=== PATIENT | male | born 1990 | race Caucasian/White ===

== ENCOUNTER 2016-12-18 19:45 | Emergency (ER) | payer MEDICAID ==
--- NOTE | 2016-12-18 21:52 | ED Physician Chart ---
Chief Complaint/HPI - Patient Information Date Seen:: 12/18/16 Time Seen:: 21:30 Chief Complaint:: sore throat, cough, subjective fever History of Present Illness:: patient has had sore throat, cough productive of dark green sputum, subjective fever for three days. Patient has been using two inhalers and his breathing machine without improvement. Allergies:: Allergies Allergy/AdvReac Type Severity Reaction Status Date / Time No Known Allergies Allergy Verified 12/18/16 20:13 Vitals:: Vital Signs - 8 hr 12/18/16 20:13 Temp 98.8 F HR 109 RR 18 BP 138/81 O2 Sat % 97 Historian:: Patient Review:: Nurse's Note Reviewed, Transfer documents Reviewed Review of Systems - Review of Systems General/Constitutional: Fever Skin: No skin lesions Head: No headache Eyes: No loss of vision ENT: No earache, Sore throat Neck: No neck pain Cardio Vascular: No chest pain Pulmonary: Cough, Sputum GI: No nausea, No vomiting, No diarrhea G/U: No dysuria Musculoskeletal: No bone or joint pain, No back pain Endocrine: No polyuria, No polydipsia Psychiatric: No prior psych history, No depression, No anxiety Hematopoietic: No bruising Allergic/Immuno: No urticaria Neurological: No syncope, No focal symptoms Past Medical History - Past Medical History Past Medical History: Asthma/COPD Family History: Heart disease, Diabetes Melitus Social History: Non Smoker, No Alcohol Surgical History: None Psychiatricy History: None Medication: Reviewed Family Medical History - Family Member Mother History Unknown: Yes Ethnicity: Non- Living Status: Still Living Hx Family Cancer: No Hx Family Hypertension: Yes Hx Family Diabetes: Yes Physical Exam - Physical Examination General/Constitutional: Well-developed, well-nourished, Alert, No distress Head: Atraumatic Eyes: Lids, conjuctiva normal, PERRL Skin: Nl inspection, No rash, No skin lesions ENMT: External ears, nose nl, TM canals nl, Nasal exam nl, Lips, teeth, gums nl Other ENMT comments:: mild increased erythema of pharynx with slight mucousy exudate Neck: No nuchal rigidity Respiratory: Nl effort/Exclusion, Clear to Auscultation Other Respiratory comments:: slight prolongation of expirations Cardio Vascular: RRR GI: No tenderness/rebounding/guarding, No organomegaly : No CVA tenderness Extremities: Normal digits & nails Neuro/Psych: No focal deficits Misc: Normal back ED Septic Shock - . Is Septic Shock (SBP<90, OR Lactate>4 mmol\L) present?: No - <6hrs of presentation: Vital Signs: Vital Signs - 8 hr 12/18/16 20:13 Temp 98.8 F HR 109 RR 18 BP 138/81 O2 Sat % 97 Reassessment (Disposition) - Reassessment Reassessment Condition:: Unchanged - Diagnosis Diagnosis:: acute viral syndrome; pharyngitis; bronchitis - Aftercare/Follow up Instructions Medication Prescribed:: Promethazine with codeine elixir 4 oz Sig 10 ml QID; Z pack - Patient Disposition Discharge/Transfer:: Home Condition at Disposition:: Stable, Unchanged
== END 2016-12-18 22:05 | disposition home or self-care (01) ==
LOC: ER 19:45
DX: B34.9 Viral infection, unspecified (principal); J40 Bronchitis, not specified as acute or chronic; J02.9 Acute pharyngitis, unspecified
CPT/HCPCS: Z7502

== ENCOUNTER 2017-03-02 08:47 | Emergency (ER) | payer BC, MEDICAID ==
--- NOTE | 2017-03-02 10:06 | ED Physician Chart ---
Chief Complaint/HPI - Patient Information Date Seen:: 03/02/17 Time Seen:: 09:00 History of Present Illness:: THIS IS A 26 YO MALE WITH A DEEP COUGH AND CHEST CONGESTION THAT HE THINKS BECAUSE HIS HAS BEEN SICK WITH THE SAME SYMPTOMS OF FEVER AND CONGESTION. HE STATES THAT HE HAS A SORE THROAT. HE DENIES ALL OTHER ILLNESSES. HE DENIES SPUTUM PRODUCTION. HE DENIES ANY PREVIOUS BOUTS OF PNEUMONIA AND T.B. Allergies:: Allergies Allergy/AdvReac Type Severity Reaction Status Date / Time No Known Allergies Allergy Verified 03/02/17 09:03 Vitals:: Vital Signs - 8 hr 03/02/17 03/02/17 08:51 09:16 Temp 99.2 F 99.2 F HR 123 123 RR 16 16 BP 136/73 136/73 O2 Sat % 97 97 Historian:: Patient Review:: Nurse's Note Reviewed Review of Systems - Review of Systems General/Constitutional: Fever, No chills, No weight loss, No weakness, No diaphoresis, No edema, No loss of appetite Skin: No skin lesions, No rash, No bruising Head: No headache, No light-headedness Eyes: No loss of vision, No pain, No diplopia ENT: No earache, No nasal drainage, Sore throat, No tinnitus Neck: No neck pain, No swelling, No thyromegaly, No stiffness, No mass noted Cardio Vascular: No chest pain, No palpitations, No PND, No orthopnea, No edema Pulmonary: No SOB, Cough, No sputum, No wheezing, Other (CONGESTION) GI: No nausea, No vomiting, No diarrhea, No pain, No melena, No hematochezia, No constipation, No hematemesis G/U: No dysuria, No frequency, No hematuria Musculoskeletal: No bone or joint pain, No back pain, No muscle pain Endocrine: No polyuria, No polydipsia Psychiatric: No prior psych history, No depression, No anxiety, No suicidal ideation Hematopoietic: No bruising, No lymphadenopathy Allergic/Immuno: No urticaria, No angioedema Neurological: No syncope, No focal symptoms, No weakness, No paresthesia, No headache, No seizure, No dizziness, No confusion, No vertigo Past Medical History - Past Medical History Obtainable: Yes Past Medical History: No significant medical hx Family History: None Social History: Non Smoker, No Alcohol, No Drug Use Surgical History: None Psychiatricy History: None Medication: Reviewed Family Medical History - Family Member Mother History Unknown: Yes Ethnicity: Non- Living Status: Still Living Hx Family Cancer: No Hx Family Hypertension: Yes Hx Family Diabetes: Yes Physical Exam - Physical Examination General/Constitutional: Awake, Well-developed, well-nourished, Alert, No distress, GCS 15, Non-toxic appearing, Ambulatory Head: Atraumatic Eyes: Lids, conjuctiva normal, PERRL, EOMI Skin: Nl inspection, No rash, No skin lesions, No ecchymosis, Well hydrated, No lymphadenopathy ENMT: External ears, nose nl, Nasal exam nl, Lips, teeth, gums nl, Oropharynx nl (POSTERIOR PHARYNX IS RED AND SWOLLEN) Neck: Nontender, Full ROM w/o pain, No JVD, No nuchal rigidity, No bruit, No mass, No stridor Respiratory: Nl effort/Exclusion, Clear to Auscultation, No Wheeze/Rhonchi/ Rales (BILATERAL RHONCHI) Cardio Vascular: RRR, No murmur, gallop, rubs, NL S1 S2 GI: No tenderness/rebounding/guarding, No organomegaly, No hernia, Normal BS's, Nondistended, No mass/bruits, No McBurney tenderness : No CVA tenderness Extremities: No tenderness or effusion, Full ROM, normal strength in all extremities, No edema, Normal digits & nails Neuro/Psych: Alert/oriented, DTR's symmetric, Normal sensory exam, Normal motor strength, Judgement/insight normal, Mood normal, Normal gait, No focal deficits Misc: normal gait, Normal back, No paraspinal tenderness ED Septic Shock - . Is Septic Shock (SBP<90, OR Lactate>4 mmol\L) present?: No - <6hrs of presentation: Vital Signs: Vital Signs - 8 hr 03/02/17 03/02/17 08:51 09:16 Temp 99.2 F 99.2 F HR 123 123 RR 16 16 BP 136/73 136/73 O2 Sat % 97 97 Reassessment (Disposition) - Reassessment Reassessment Condition:: Unchanged - Diagnosis Diagnosis:: ACUTE BRONCHITIS PHARYNGITIS - Aftercare/Follow up Instructions Aftercare/Follow-Up Instructions:: Counseled pt regarding lab results/diagnosis & need follow up, Refer to Discharge Instructions, Counseled pt & family regarding lab results/diagnosis & need follow up - Patient Disposition Discharge/Transfer:: Home Condition at Disposition:: Unchanged ED Discharge Plan - Patient Disposition Admit/Discharge/Transfer: PT DISCHARGED HOME Condition at Disposition: Unchanged Prescriptions: Azithromycin [Zithromax Tri-Wilmer] 500 mg PO DAILY #0 tablet Prednisone 10 mg PO BID #0 tab.[id number].[email or web address] Instructions: Bronchitis, [id number] Accepting Physician: , Primary [Other]
== END 2017-03-02 09:15 | disposition home or self-care (01) ==
LOC: ER 08:47
DX: J20.9 Acute bronchitis, unspecified (principal); J02.9 Acute pharyngitis, unspecified
CPT/HCPCS: Z7502

== ENCOUNTER 2017-03-20 13:24 | Emergency (ER) | payer BC, MEDICAID ==
[2017-03-20 13:50] VITALS: BP 128/66
--- NOTE | 2017-03-20 13:52 | ED Physician Chart ---
Chief Complaint/HPI - Patient Information Date Seen:: 03/20/17 Time Seen:: 13:40 Chief Complaint:: LEFT CHEST PAIN History of Present Illness:: THIS IS A 26 YO MALE WITH THE SIXTH VISIT TO THIS ER WITH UPPER RESPIRATORY SYMPTOMS AND THIS MORNING HE STARTED HAVING PAIN ON BREATHING ON HIS LEFT SIDE. HE DENIES FEVER, AND SORE THROAT TODAY. 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 HE DENIES ANY PREVIOUS EPISODES OF PAIN ON BREATHING OR PNEUMONIA. HE DENIES EXPOSURE TO ANY SMOKE PRODUCTS. Allergies:: Allergies Allergy/AdvReac Type Severity Reaction Status Date / Time No Known Allergies Allergy Verified 03/02/17 09:03 Vitals:: Vital Signs - 8 hr 03/20/17 03/20/17 13:33 13:34 Temp 98.7 F HR 86 RR 16 BP 128/66 128/66 Historian:: Patient Review:: Nurse's Note Reviewed Review of Systems - Review of Systems General/Constitutional: No fever, No chills, No weight loss, No weakness, No diaphoresis, No edema, No loss of appetite Skin: No skin lesions, No rash, No bruising Head: No headache, No light-headedness Eyes: No loss of vision, No pain, No diplopia ENT: No earache, No nasal drainage, No sore throat, No tinnitus Neck: No neck pain, No swelling, No thyromegaly, No stiffness, No mass noted Cardio Vascular: No chest pain, No palpitations, No PND, No orthopnea, No edema Pulmonary: No SOB, No cough, No sputum, No wheezing, Other (PAIN OF BREATHING DEEPLY ON THE LEFT SIDE.) GI: No nausea, No vomiting, No diarrhea, No pain, No melena, No hematochezia, No constipation, No hematemesis G/U: No dysuria, No frequency, No hematuria Musculoskeletal: No bone or joint pain, No back pain, No muscle pain Endocrine: No polyuria, No polydipsia Psychiatric: No prior psych history, No depression, No anxiety, No suicidal ideation Hematopoietic: No bruising, No lymphadenopathy Allergic/Immuno: No urticaria, No angioedema Neurological: No syncope, No focal symptoms, No weakness, No paresthesia, No headache, No seizure, No dizziness, No confusion, No vertigo Past Medical History - Past Medical History Past Medical History: Dyslipidemia Family History: None Social History: Non Smoker, No Alcohol, No Drug Use, , Employed Surgical History: None Psychiatricy History: None Medication: Reviewed Family Medical History - Family Member Mother History Unknown: Yes Ethnicity: Living Status: Still Living Hx Family Cancer: No Hx Family Coronary Artery Disease: No Hx Family Congestive Heart Failure: No Hx Family Hypertension: Yes Hx Family Stroke: No Hx Family Diabetes: No Hx Family Dementia: No Hx Family COPD: No Physical Exam - Physical Examination General/Constitutional: Awake, Well-developed, well-nourished, Alert, No distress, GCS 15, Non-toxic appearing, Ambulatory Head: Atraumatic Eyes: Lids, conjuctiva normal, PERRL, EOMI Skin: Nl inspection, No rash, No skin lesions, No ecchymosis, Well hydrated, No lymphadenopathy ENMT: External ears, nose nl, Nasal exam nl, Lips, teeth, gums nl Neck: Nontender, Full ROM w/o pain, No JVD, No nuchal rigidity, No bruit, No mass, No stridor Other Respiratory comments:: THERE RHONCHI HEARD ON BOTH SIDES WITH PAINFUL INSPIRATION ON THE LEFT MIDDLE LOBE AREA. Cardio Vascular: RRR, No murmur, gallop, rubs, NL S1 S2 GI: No tenderness/rebounding/guarding, No organomegaly, No hernia, Normal BS's, Nondistended, No mass/bruits, No McBurney tenderness : No CVA tenderness Extremities: No tenderness or effusion, Full ROM, normal strength in all extremities, No edema, Normal digits & nails Neuro/Psych: Alert/oriented, DTR's symmetric, Normal sensory exam, Normal motor strength, Judgement/insight normal, Mood normal, Normal gait, No focal deficits Misc: normal gait, Normal back, No paraspinal tenderness ED Septic Shock - . Is Septic Shock (SBP<90, OR Lactate>4 mmol\L) present?: No - <6hrs of presentation: Vital Signs: Vital Signs - 8 hr 03/20/17 03/20/17 13:33 13:34 Temp 98.7 F HR 86 RR 16 BP 128/66 128/66 Reassessment (Disposition) - Reassessment Reassessment Condition:: Improved - Aftercare/Follow up Instructions Aftercare/Follow-Up Instructions:: Counseled pt regarding lab results/diagnosis & need follow up, Refer to Discharge Instructions, Counseled pt & family regarding lab results/diagnosis & need follow up
[2017-03-20 14:28] LABS: % BASOPHILS 0.4 % (0.0-2.0); % EOSINOPHILS 0.5 % (0.0-5.0); % LYMPHOCYTES 25.1 % (20.0-50.0); % MONOCYTES 8.7 % (2.0-10.0); % NEUTROPHILS 65.3 % (40.0-80.0); HEMATOCRIT 43.8 % (39.0-49.0); HEMOGLOBIN 14.9 gm/dL (13.2-17.3); MEAN CELL VOLUME 88.6 fl (80-99); MEAN CORPUSCULAR HEMOGLOBIN 30.2 pg (26.0-30.0); MEAN CORPUSCULAR HGB CONC 34.1 pg (28.0-36.0); MEAN PLATELET VOLUME 9.7 fl; NEUTROPHILE ABSOLUTE 4.5 Th/cmm (1.8-8.0); PLATELET COUNT 214 Th/cmm (150-400); RED BLOOD COUNT 4.94 Mil/cmm (4.30-5.70); RED CELL DISTRIBUTION WIDTH 12.6 % (11.5-20.0); WHITE BLOOD COUNT 6.8 Th/cmm (4.8-10.8)
[2017-03-20 14:37] LABS: INR 0.96 (0.5-1.4)
[2017-03-20 14:46] LABS: ALB/GLOB RATIO 1.8 (1.0-1.8); ALKALINE PHOSPHATASE 62 U/L (34-104); ANION GAP 8.3 (7.0-16.0); BILIRUBIN,TOTAL 0.5 mg/dL (0.3-1.0); BUN - UREA NITROGEN 15 mg/dL (7-25); BUN/CREATININE RATIO 18.8; CALCIUM SERUM 9.7 mg/dL (8.6-10.3); CARBON DIOXIDE 24.6 mEq/L (21.0-31.0); CHLORIDE 107 mEq/L (98-107); CREATININE - SERUM 0.8 mg/dL (0.7-1.3); GLUCOSE 107 mg/dL (70-105); POTASSIUM SERUM 3.9 mEq/L (3.5-5.1); SGOT 22 U/L (13-39); SGPT/ALT 33 U/L (7-52); SODIUM SERUM 136 mEq/L (136-145)
--- NOTE | 2017-03-20 15:28 | Diagnostic Imaging Report ---
CT scan of the chest without intravenous contrast HISTORY: Pain Total DLP equals 257 CTDI equals 6.0 Axial sections were obtained from a level above the clavicles down to level below the diaphragm. There is a normal heart size. Evaluation of the vascular structures is limited due to the absence of intravenous contrast. Normal-sized lymph nodes are seen within the mediastinum. No abnormal focal pulmonary parenchymal processes are seen. No abnormal masses. No pleural fluid is seen. No definite acute bony abnormalities. IMPRESSION: No acute abnormalities
== END 2017-03-20 15:45 | disposition home or self-care (01) ==
LOC: ER 13:24
DX: R07.89 Other chest pain (principal); E78.5 Hyperlipidemia, unspecified
CPT/HCPCS: 36415-UA; 71250-TC; 80053-TC; 84443-TC; 84484-TC; 85025-TC; 85610-TC; 86592-TC

== ENCOUNTER 2017-04-30 15:06 | Emergency (ER) | payer BC, MEDICAID ==
--- NOTE | 2017-04-30 15:54 | ED Physician Chart ---
Chief Complaint/HPI - Patient Information Date Seen:: 04/30/17 Time Seen:: 15:40 Chief Complaint:: right-sided sore throat History of Present Illness:: Patient has had right-sided sore throat since yesterday. His temperature at home was 101.4. Patient has a mild cough. Allergies:: Allergies Allergy/AdvReac Type Severity Reaction Status Date / Time No Known Allergies Allergy Verified 03/02/17 09:03 Vitals:: Vital Signs - 8 hr 04/30/17 04/30/17 15:26 15:35 Temp 98.1 F 98.1 F HR 87 87 RR 16 16 BP 124/73 124/73 O2 Sat % 98 98 Historian:: Patient Review:: Nurse's Note Reviewed Review of Systems - Review of Systems General/Constitutional: Fever Skin: No skin lesions Head: No headache Eyes: No loss of vision ENT: No earache, Sore throat, No tinnitus Neck: No neck pain, No swelling, No thyromegaly, No stiffness Cardio Vascular: No chest pain, Palpitations Pulmonary: No SOB GI: No nausea, No vomiting Musculoskeletal: No bone or joint pain, No back pain, No muscle pain Endocrine: No polyuria, No polydipsia Psychiatric: No prior psych history Hematopoietic: No bruising, No lymphadenopathy Neurological: No syncope, No focal symptoms Past Medical History - Past Medical History Past Medical History: Dyslipidemia, Other (patient has frequent sore throats; he has had 5-6 sore throats this year; hyperlipidemia) Family History: Heart disease, Diabetes Melitus, HTN Social History: Non Smoker, No Alcohol Surgical History: None Psychiatricy History: None Medication: Reviewed Family Medical History - Family Member Mother History Unknown: Yes Ethnicity: Living Status: Still Living Hx Family Cancer: No Hx Family Coronary Artery Disease: Yes Hx Family Congestive Heart Failure: No Hx Family Hypertension: Yes Hx Family Stroke: No Hx Family Diabetes: Yes Hx Family Dementia: No Hx Family COPD: No Physical Exam - Physical Examination General/Constitutional: Well-developed, well-nourished, Alert, No distress Head: Atraumatic Eyes: Lids, conjuctiva normal, PERRL Skin: Nl inspection, No rash, No skin lesions, No ecchymosis, Well hydrated, No lymphadenopathy ENMT: External ears, nose nl, TM canals nl, Nasal exam nl, Lips, teeth, gums nl , Oropharynx nl Other ENMT comments:: The right tonsil is slightly swollen and slightly more erythematous than the left; there is 1 mm of exudate on the right tonsil Neck: No nuchal rigidity Respiratory: Nl effort/Exclusion, Clear to Auscultation, No Wheeze/Rhonchi/Rales Cardio Vascular: RRR, No murmur, gallop, rubs GI: No tenderness/rebounding/guarding, No organomegaly, No hernia, Normal BS's, Nondistended, No mass/bruits : No CVA tenderness Extremities: Normal digits & nails Neuro/Psych: Alert/oriented, No focal deficits Misc: Normal back, No paraspinal tenderness ED Septic Shock - . Is Septic Shock (SBP<90, OR Lactate>4 mmol\L) present?: No - <6hrs of presentation: Vital Signs: Vital Signs - 8 hr 04/30/17 04/30/17 15:26 15:35 Temp 98.1 F 98.1 F HR 87 87 RR 16 16 BP 124/73 124/73 O2 Sat % 98 98 Reassessment (Disposition) - Reassessment Reassessment Condition:: Unchanged - Diagnosis Diagnosis:: Tonsillitis of right tonsil - Aftercare/Follow up Instructions Medication Prescribed:: Pen VK 500 mg #20 to take one twice a day for 10 days - Patient Disposition Discharge/Transfer:: Home Condition at Disposition:: Stable, Unchanged ED Discharge Plan - Patient Disposition Instructions: Sore Throat
== END 2017-04-30 16:00 | disposition home or self-care (01) ==
LOC: ER 15:06
DX: J03.90 Acute tonsillitis, unspecified (principal); E78.5 Hyperlipidemia, unspecified
CPT/HCPCS: Z7502

== ENCOUNTER 2017-10-04 14:00 | Emergency (ER) | payer BC, MEDICAID ==
--- NOTE | 2017-10-04 14:30 | ED Physician Chart ---
ED Chief Complaint/HPI - Patient Information Date Seen:: 10/04/17 Time Seen:: 14:06 Chief Complaint:: Cough for one week. History of Present Illness:: Pt came in by private auto because of cough for one week. Pt has had nasal congestion with yellow green discharge. Cough at times has yellow green phlegm. No fever. No N/V/D. No dyspnea. Allergies:: Allergies Allergy/AdvReac Type Severity Reaction Status Date / Time No Known Allergies Allergy Verified 03/02/17 09:03 Vitals:: Vital Signs - 8 hr 10/04/17 14:19 Temp 99.3 F HR 103 RR 17 BP 130/89 O2 Sat % 96 Historian:: Patient Family MD/PCP:: Dr. Wilson LMP:: N/A Review:: Nurse's Note Reviewed ED Review of Systems - Review of Systems General/Constitutional: No fever, No chills, No weight loss, No weakness, No edema, No loss of appetite Skin: No skin lesions, No bruising Head: No headache, No light-headedness Eyes: No loss of vision, No pain, No diplopia ENT: No earache, Nasal drainage, Sore throat Neck: No neck pain, No swelling, No thyromegaly, No stiffness, No mass noted Cardio Vascular: No chest pain, No palpitations, No edema Pulmonary: No SOB, Cough, Sputum (green yellow phlegm), No wheezing GI: No nausea, No vomiting, No pain G/U: No dysuria, No frequency, No hematuria Musculoskeletal: No bone or joint pain Endocrine: No polyuria, No polydipsia Psychiatric: No prior psych history Hematopoietic: No bruising, No lymphadenopathy Allergic/Immuno: No urticaria, No angioedema Neurological: No syncope, No focal symptoms, No weakness, No paresthesia, No headache, No dizziness, No confusion ED Past Medical History - Past Medical History Past Medical History: Dyslipidemia Family History: Diabetes Melitus (MGM), HTN (MGM), Cancer (MGF) Social History: Non Smoker, No Alcohol, No Drug Use, , Employed, Other ( lives with his and children) Employment:: Packing Surgical History: other (R wrist surgery related to fx 06/25) Psychiatricy History: None Medication: Reviewed Family Medical History - Family Member Mother History Unknown: Yes Ethnicity: Living Status: Still Living Hx Family Cancer: No Hx Family Coronary Artery Disease: Yes Hx Family Congestive Heart Failure: No Hx Family Hypertension: Yes Hx Family Stroke: No Hx Family Diabetes: Yes Hx Family Dementia: No Hx Family COPD: No ED Physical Exam - Physical Examination General/Constitutional: Awake, Well-developed, well-nourished, Alert, No distress, GCS 15, Non-toxic appearing, Ambulatory Other Gen/Cons comments:: Breathes comfortably, speaks clearly, interacts normally, and ambulates without difficulty. Head: Atraumatic Eyes: Lids, conjuctiva normal, PERRL, EOMI Skin: Nl inspection, No rash, No skin lesions, No ecchymosis, Well hydrated, No lymphadenopathy ENMT: TM canals nl, Lips, teeth, gums nl, Oropharynx nl, Tonsils nl Other ENMT comments:: Trace yellow nasal exudate and postnasal drip noticed. Neck: Nontender, Full ROM w/o pain, No nuchal rigidity, No mass, No stridor Respiratory: Nl effort/Exclusion, Clear to Auscultation, No Wheeze/Rhonchi/Rales Cardio Vascular: RRR (HR 90), No murmur, gallop, rubs GI: No tenderness/rebounding/guarding, No organomegaly, Normal BS's, Nondistended Extremities: No tenderness or effusion, Full ROM, No edema Neuro/Psych: Alert/oriented (oriented x 3), Judgement/insight normal, Mood normal, Normal gait, No focal deficits ED Septic Shock - . Is Septic Shock (SBP<90, OR Lactate>4 mmol\L) present?: No - <6hrs of presentation: Vital Signs: Vital Signs - 8 hr 10/04/17 14:19 Temp 99.3 F HR 103 RR 17 BP 130/89 O2 Sat % 96 ED Reassessment (Disposition) - Reassessment Reassessment:: 1435 Pt remains stable. Pt requests to go home now. Aftercare instructions have been given. - Diagnosis Diagnosis:: Acute sinusitis. - Aftercare/Follow up Instructions Aftercare/Follow-Up Instructions:: Refer to Discharge Instructions Notes:: Push oral fluid. May use Sudafed as directed. May take Motrin 200 mg tab 4 tabs po q8h prn pain or fever. F/U with PCP Dr. Wilson in 2-3 days for recheck. Return to ER immediately if condition worsens or if any further questions/problems. Medication Prescribed:: Bactrim DS one tab po q12h for 14 days. D-28 R-0 - Patient Disposition Discharge/Transfer:: Home Time:: 14:45 Condition at Disposition:: Stable
== END 2017-10-04 15:20 | disposition home or self-care (01) ==
LOC: ER 14:00
DX: J01.90 Acute sinusitis, unspecified (principal); E78.5 Hyperlipidemia, unspecified
CPT/HCPCS: Z7502

== ENCOUNTER 2018-11-26 10:02 | Emergency (ER) | payer OTHER, MEDICAID ==
[2018-11-26] MEDS ORDERED: Albuterol/Ipratropium Neb 3 ML AERS HHN ONE ×2 (10:29→10:46)
--- NOTE | 2018-11-26 10:29 | ED Physician Chart ---
ED Chief Complaint/HPI - Patient Information Date Seen:: 11/26/18 Time Seen:: 10:25 Chief Complaint:: Cough and sore throat History of Present Illness:: 28 yo male had cough, sore throat, body ache for 1 day. Patient had fever 101 and chills yesterday. Patient's kids and are sick with similar symptoms. Allergies:: Allergies Allergy/AdvReac Type Severity Reaction Status Date / Time No Known Allergies Allergy Verified 11/26/18 10:20 Vitals:: Vital Signs - 8 hr 11/26/18 10:05 Temp 98.3 F HR 98 RR 18 BP 124/76 O2 Sat % 96 ED Review of Systems - Review of Systems General/Constitutional: Fever, Chills Skin: No rash Head: No headache Eyes: No pain ENT: No nasal drainage, Sore throat Neck: No neck pain Cardio Vascular: No chest pain Pulmonary: No SOB GI: No nausea, No vomiting Musculoskeletal: No bone or joint pain Neurological: No focal symptoms ED Past Medical History - Past Medical History Past Medical History: No significant medical hx, Other (Chronic low back pain) Social History: Non Smoker, No Alcohol, No Drug Use Surgical History: other (spinal cord stimulator) Family Medical History - Family Member Mother History Unknown: Yes Ethnicity: Living Status: Still Living Hx Family Cancer: No Hx Family Coronary Artery Disease: Yes Hx Family Congestive Heart Failure: No Hx Family Hypertension: No Hx Family Stroke: No Hx Family Diabetes: Yes Hx Family Dementia: No Hx Family HIV: No Hx Family COPD: No Hx Family Hepatitis: No Hx Family Psychiatric Problems: No ED Physical Exam - Physical Examination General/Constitutional: Awake, Alert Head: Atraumatic Eyes: PERRL Skin: No skin lesions ENMT: Nasal exam nl Neck: No nuchal rigidity Respiratory: No Wheeze/Rhonchi/Rales Cardio Vascular: RRR, No murmur, gallop, rubs, NL S1 S2 GI: No tenderness/rebounding/guarding Extremities: normal strength in all extremities Neuro/Psych: No focal deficits ED Labs/Radiology/EKG Results - Lab Results Results: Laboratory Last Values Influenza A (Rapid) NEG FOR INF A 11/26/18 10:35 Influenza B (Rapid) NEG FOR INF B 11/26/18 10:35 - Radiology Results Results: CXR: no acute lung disease ED Assessment - Assessment General Assessment: Acute bronchitis Upper respiratory infection Assessment/Comments:: DuoNeb ED Septic Shock - . Is Septic Shock (SBP<90, OR Lactate>4 mmol\L) present?: No - <6hrs of presentation: Vital Signs: Vital Signs - 8 hr 11/26/18 10:05 Temp 98.3 F HR 98 RR 18 BP 124/76 O2 Sat % 96 ED Reassessment (Disposition) - Reassessment Reassessment:: Improved D/c home Symptoms relief by over the counter medication F/u PCP or return to ER if symptoms worsen Reassessment Condition:: Improved - Patient Disposition Discharge/Transfer:: Home
[2018-11-26 11:21] LABS: INF A SCREEN NEG FOR INF A; INF B SCREEN NEG FOR INF B
--- NOTE | 2018-11-26 11:55 | Diagnostic Imaging Report ---
Portable chest x-ray History: Cough Allowing for portable technique the heart size is normal. No focal pulmonary parenchymal processes. No hilar or mediastinal abnormalities. Electrode lead projects over the lower thoracic spine. Impression: No acute abnormalities.
== END 2018-11-26 11:58 | disposition home or self-care (01) ==
LOC: ER 10:02
DX: J20.9 Acute bronchitis, unspecified (principal); J06.9 Acute upper respiratory infection, unspecified; Z98.890 Other specified postprocedural states
CPT/HCPCS: 71045-TC; 87804-TC; 94640; Z7502